=== PATIENT | female | born 2000 | race Two or more races ===

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

== ENCOUNTER 2021-04-20 05:43 | Emergency (ER) | payer OTHER | END 2021-04-20 06:31 | disposition left against medical advice (07) | LOC: EMS 05:49 | DX: F10.129 Alcohol abuse with intoxication, unspecified (principal); Z53.21 Procedure and treatment not carried out due to patient leaving prior to being seen by health care provider ==